=== PATIENT | male | born 1990 | race Caucasian/White ===

== ENCOUNTER 2024-04-05 12:16 | Emergency (ER) | payer OTHER ==
[2024-04-05 12:38] VITALS: TEMP 98.9; O2SAT 98
--- NOTE | 2024-04-05 12:52 | ERPHSYRPT ---
- History of Present Illness Time Seen by Provider: 04/05/24 12:47 Source: patient Exam Limitations: no limitations Patient Subjective Stated Complaint: C/O burn to LUE. States patient has some hot hydrollic oil spill on his left arm at work just prior to coming into the [facility]. Triage Nursing Assessment: Patient ambulated back to ER. He is alert and oriented. LUE noted to burnt from biscep area to just proximal of left wrist. A few burst blisters noted with the rest of the area noted to be red in color. Burned area covered in saline soaked gauze; patient states this has improved the pain. Physician History: Patient has a burn on his left arm. It is first-degree primarily with some mild second-degree areas. It is about midway up his tricep area and extends down midway down his ulna. It is not circumferential. It is erythematous. There is no extension into the basal layer of the skin. It appears to all be superficial. It was caused by some hot hydraulic fluid. He does not have any peripheral edema or anything like that. Pain is moderate. Nothing makes his symptoms better or worse. Occurred: just prior to arrival Allergies/Adverse Reactions: amoxicillin Allergy (Verified 04/05/24 12:28) lisinopril Allergy (Verified 04/05/24 12:38) Penicillins Allergy (Verified 04/05/24 12:28) Home Medications: Amlodipine Besylate 5 mg [Norvasc 5 mg] 10 mg PO DAILY 04/05/24 [History] Escitalopram Oxalate [Lexapro] 10 mg PO DAILY 04/05/24 [History] Hx Tetanus, Diphtheria Vaccination/Date Given: (Unsure about tetanus) Travel Risk - International Travel Have you traveled outside of the country in past 3 weeks: No - Emerging Infectious Disease Are you exhibiting symptoms associated with any current EIDs: No - Review of Systems Constitutional: No Symptoms Eyes: No Symptoms Respiratory: No Symptoms Neurological: No Symptoms - Past Medical History Pertinent Past Medical History: Yes Cardiac History: Hypertension Psycho-Social History: Depression - Past Surgical History Past Surgical History: No - Social History Smoking Status: Never smoker Drug Use: none - Social Determinants of Health Will the patient participate in the screening: Declined to provide - Nursing Vital Signs Nursing Vital Signs: Initial Vital Signs Temperature 98.9 F 04/05/24 12:32 Pulse Rate 92 H 04/05/24 12:32 Respiratory Rate 18 04/05/24 12:32 Blood Pressure 150/109 04/05/24 12:32 O2 Sat by Pulse Oximetry 98 04/05/24 12:32 Pain Scale Pain Intensity 5 - Physical Exam General Appearance: no apparent distress Shoulder Exam: normal inspection Elbow/Forearm Exam: pain (Burn on the forearm and proximal arm consistent with the description in the HPI.IsIt is not circumferential. Shallow and not into the deep subcutaneous tissues. There is some mild blistering.) Wrist Exam: normal inspection Hand Exam: normal inspection Neuro/Tendon Exam: normal sensation, normal motor functions, normal tendon functions Mental Status Exam: alert Skin Exam: normal color SpO2: 98 - Course Nursing assessment & vital signs reviewed: Yes - Progress Progress: unchanged Progress Note: We put some cool rags on the burn it helped. We are going to dress it with Silvadene cream. He is to change the dressings twice a day for 3 days. After that he is to follow-up with his primary doctor on day 4. He is to return if symptoms worsen.The burn is not circumferential. I do not think that is going to be any long-term sequela from it. 04/05/24 12:51 Medical Desision Making - Risk of complications Minimal Risk: Minimal risk of morbidity - Departure Departure Disposition: Home Clinical Impression: Burn of left upper extremity Condition: Stable Critical Care Time: No Instructions: Skin alejo Additional Instructions: Follow-up with primary doctor on day 4 Change the dressing2 times a day for 3 days Prescriptions: Hydrocodone/Acetaminophen [Hydrocodone-Acetamin 5-325 mg] 1 tab PO Q6HPRN PRN #14 tablet MDD 4 PRN Reason: Pain Hydrocodone/Acetaminophen [Hydrocodone-Acetamin 10-325 mg] 1 each PO TID PRN #20 tablet MDD 3 Silver Sulfadiazine 50 gm [Silvadene 50 gm] 50 gm TP TID #150 ml
[2024-04-05] MEDS ORDERED: SILVADENE 50 GM TP ONE (13:01)
[2024-04-05 13:15] VITALS: BP 158/82; PULSE 90; RESP 19
[2024-04-05] MEDS: SILVADENE 50 GM TP ONE (13:18)
== END 2024-04-05 13:26 | disposition home or self-care (01) ==
LOC: ED 12:16
DX: T22.292A Burn of second degree of multiple sites of left shoulder and upper limb, except wrist and hand, initial encounter (principal); X12.XXXA Contact with other hot fluids, initial encounter; Y99.0 Civilian activity done for income or pay; I10 Essential (primary) hypertension; Z79.891 Long term (current) use of opiate analgesic; Z79.899 Other long term (current) drug therapy
CPT/HCPCS: 99281; A9270-GY